=== PATIENT | male | born 1975 | race African-American/Black ===

== ENCOUNTER 2016-06-22 21:21 | Emergency (ER) | payer SELFPAY ==
[~2016-06-22] VITALS: Ht 175.3 cm; Wt 84.0 kg
[2016-06-22 23:00] VITALS: BP 117/73
== END 2016-06-23 01:00 | disposition home or self-care (01) ==
LOC: ER 23:28
DX: S50.352A Superficial foreign body of left elbow, initial encounter (principal); W45.8XXA Other foreign body or object entering through skin, initial encounter; Y93.89 Activity, other specified; Y92.89 Other specified places as the place of occurrence of the external cause; Y99.8 Other external cause status; I10 Essential (primary) hypertension; Z87.891 Personal history of nicotine dependence; Z98.890 Other specified postprocedural states; Z90.49 Acquired absence of other specified parts of digestive tract
CPT/HCPCS: 99282